=== PATIENT | male | born 1975 | race Caucasian/White ===

== ENCOUNTER → 2018-01-11 | Outpatient (CLI) | payer OTHER | LOC: CIMAGING 13:31 | PROVIDERS: ATTEND Family Medicine | DX: J34.1 Cyst and mucocele of nose and nasal sinus (principal); R93.0 Abnormal findings on diagnostic imaging of skull and head, not elsewhere classified | CPT/HCPCS: 70480-PO ==

== ENCOUNTER → 2018-02-08 | Outpatient (CLI) | payer OTHER ==
[~2018-02-08] MED LIST: GADOBUTROL 10 ML VIAL IVP ONE
== END ==
LOC: FIMAGING 15:25
PROVIDERS: ATTEND Family Medicine
DX: I63.9 Cerebral infarction, unspecified (principal); J34.1 Cyst and mucocele of nose and nasal sinus
CPT/HCPCS: A9585

== ENCOUNTER → 2018-02-25 | Outpatient (CLI) | payer OTHER | LOC: FIMAGING 16:48 | PROVIDERS: ATTEND Family Medicine | DX: I69.30 Unspecified sequelae of cerebral infarction (principal) ==

== ENCOUNTER 2018-07-10 21:26 | Emergency (ER) | payer OTHER ==
[2018-07-10] MEDS ORDERED: ASPIRIN 81 MG CHEWABLE TAB PO ONE (21:40)
[2018-07-10] MEDS ORDERED: NITROGLYCERIN 0.4 MG BTL SL PRN (21:40)
--- NOTE | 2018-07-10 21:45 | EDPHY ---
H & P Smoking Status: Never smoked Time Seen by Provider: 07/10/18 21:40 HPI/ROS: CHIEF COMPLAINT: Chest pain HISTORY OF PRESENT ILLNESS: Patient presents with chest pain. He states that about 4 hr ago, around 530 this evening, he noticed some mild chest pain in the left substernal region. He describes it as a pressure-type pain with some radiation to the left neck. Over the course of 4 hr pain got somewhat worse which prompted his visit to the emergency department. He states that the worst it was for 5/10. He states he has had no significant shortness of breath, nausea, vomiting or diaphoresis related to this pain. He has had no new dyspnea on exertion but admits that he is out of shape and gets tired easily. He denies leg swelling, recent travel, recent illnesses. He states he has been a little stuffy today and kind of achy. He also has a heart rate monitor that he wears and states that his heart rate has been over 100 most of the day today. He has hypertension but no prior history of coronary artery disease. He was seen by Dr. Golden Luna approximately 6 months ago and had a exercise stress test, carotid ultrasound, echo done which were all essentially normal. This workup was initiated as he was noted to have tachycardia and also lacunar infarcts on a CT scan and MRI that were done for a persistent sinus infection. REVIEW OF SYSTEMS: Constitutional: No fever, no chills. Eyes: No discharge. ENT: No sore throat. Cardiovascular: Per HPI Respiratory: No cough, no shortness of breath. Gastrointestinal: No abdominal pain, no vomiting. Genitourinary: No dysuria. Musculoskeletal: No back pain. Skin: No rashes. Neurological: No headache. General Appearance: Alert, no distress. Obese. Eyes: Pupils equal and round no pallor or injection. ENT, Mouth: Mucous membranes moist. Respiratory: There are no retractions, lungs are clear to auscultation. Cardiovascular: Tachycardic, no murmurs rubs or gallops. Normal femoral pulses. Palpation does not reproduce symptoms. Gastrointestinal: Abdomen is soft and nontender, no masses, bowel sounds normal. Neurological: Awake, alert, cranial nerves normal. No focal deficits. Skin: Warm and dry, no rashes. Musculoskeletal: Neck is supple nontender. Extremities are symmetrical, full range of motion, no edema. Psychiatric: Patient is oriented X 3, there is no agitation. Medical/surgical history: Hypertension, eczema, obstructive sleep apnea with CPAP at night. Social history: Nonsmoker, family history includes maternal grandfather who had heart attack in his 70s. Mother with tachycardia and hypertension. (Jyoti Zaidi) Constitutional: Initial Vital Signs Temperature (C) 36.6 C 07/10/18 21:27 Heart Rate 100 07/10/18 21:27 Respiratory Rate 20 07/10/18 21:27 Blood Pressure 173/115 H 07/10/18 21:27 O2 Sat (%) 97 07/10/18 21:27 O2 Delivery Mode Room Air O2 (L/minute) 2 Allergies/Adverse Reactions: No Known Allergies Allergy (Unverified 07/10/18 21:34) Home Medications: Medication Instructions Recorded Amlodipine Besylate 07/10/18 Hydrochlorothiazide 07/10/18 Metoprolol Succinate [Toprol Xl] 50 mg PO DAILY #14 tab.er.24h 07/11/18 Medical Decision Making - Diagnostics Imaging: I viewed and interpreted images myself - Diagnostics EKG Interpretation: EKG performed for chest pain. EKG shows sinus tachycardia with a rate of 103. Normal intervals. Left axis. Q-waves present in 3 and AVF. Nonspecific T- wave flattening inferior and lateral leads. No acute ST T-wave changes to suggest infarct or ischemia. Impression nonspecific EKG. (Jyoti Zaidi) EKG 2. EKG: Interpreted by me contemporaneously. Rhythm: Normal sinus rhythm. Heart rate 90 QTc 512 QRS: Narrow Q's in 3 and F STT segment: Nonspecific ST-T changes in 1 V4 V5 V6 T Waves: Normal Q waves narrow Q-waves in 3 and F Summary: Nonspecific ST-T changes and borderline significant Q-waves in 3 and F (Tawanda Benitez) Imaging Results: Imaging Impressions Chest X-Ray 07/10/18 21:41 Impression: Mild bronchitis. No other findings for acute cardiopulmonary abnormality. Chest x-ray shows no infiltrates, pneumothorax. Normal heart size. Generous mediastinum. 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 (Jyoti Zaidi) ED Course/Re-evaluation: 9:55 p.m. patient lightheaded, pale, lower blood pressure after nitro. Laid flat. Pain 0/10. Initial troponin 0.01 10:25 p.m. all test back, negative troponin, negative D-dimer. CBC pending will need to be sent to [facility]. Had lengthy discussion with patient regarding heart score, risk factors, evaluation in the emergency department. With shared decision making patient and choose to remain in the emergency department for several hours to perform repeat EKG and troponin. His heart score is 3 which puts him in the low risk category. He gets points for suspicious story and risk factors. He remains chest pain-free. 11:00 p.m. discussed patient's presentation, history, workup with Dr. Benitez. Plan is for repeat EKG and troponin at midnight. And discharge home if remain negative. Obviously if things change Dr. Benitez will re-evaluate and consider admission. Patient does have both primary care physician and a meteorology faculty member for follow-up. (Jyoti Zaidi) Differential Diagnosis: Differential diagnosis includes but is not limited to myocardial infarction, acute coronary syndrome, pulmonary embolism, congestive heart failure, bronchitis, viral syndrome. After initial evaluation in the emergency department no evidence of ischemia or infarct, pulmonary embolism, vascular abnormality or arrhythmia other than sinus tachycardia. Patient's blood pressure was quite high on arrival although he tells me his systolics have been in the 150s to 160s normally at home. Doubt hypertensive emergency. On my departure from the emergency department plan is for"rule out"with close follow- up with Cardiology as outpatient. (Jyoti Zaidi) Other Provider: Care assumed at change of shift. D/w off going physician. Chart reviewed. Pt interviewed and examined. Troponin and repeat EKG pending at midnight. During the initial course of his 1st hour and a half here in the department his symptoms disappeared after having a brief hypotensive response to nitroglycerin. He had been given aspirin 325. The initial troponin which was a approximately a 4 hr troponin was negative at 0.01. His heart score is 3 pending the 2nd troponin. As he left work after a stressful day whereby he was aware of his heart beating fast, as he would could see the results on his apple I watch, he noted a pressure feeling in the chest that began well as walking outside. It persisted until he arrived here and finally went away after sublingual nitroglycerin. There is no associated symptoms such as shortness of breath, pleuritic pain, or diaphoresis or nausea vomiting. Of note however is thus the very 1st time he has ever experienced chest discomfort such as this. Granted, he has noted a poor exercise tolerance in the past with being short of breath with a single flight of stairs but this has been ongoing for months and is no worse and does not make him stop the middle of that flight of stairs. RF: He has no risk factors for DVT PE. No risk factors for aortic dissection. Risk factors for coronary disease include obesity and hypertension which is poorly controlled. He does not have a family history of early-onset coronary disease nor does he smoke nor does he have diabetes or high cholesterol. Exam as per Dr. Zaidi. EKG 1. Interpreted Dr. Zaidi and I concur with a sinus tachycardia a mild nonspecific ST-T changes anterolaterally. Repeat EKG at midnight shows these changes again however heart rate is now 90. Initial troponin is 0.01 with subsequent 1 as a 6 hr level at 0.00 In view of his apparent anxiety while at work and is persistent hypertension with a diastolic of 105 and the potential for this being a coronary achy all GI will place him on Toprol XL50 mg daily for the next 2 weeks while he is getting his workup. Evidently had some trouble with hydrochlorothiazide due to the diuretic effects while initially taking that medication this past spring and perhaps a beta-comfort would be a better selection given his predilection for stress at work. I again reviewed with the patient the heart score and his result being approximately 2% of risk of Mace in the next 30 days. I discussed with him the prospect of coming in for further evaluation and diagnostic testing in the hospital versus an outpatient treatment and he opted for the latter. (Tawanda Benitez) - Data Points Laboratory Results: Laboratory Results 07/10/18 21:41 07/11/18 07/10/18 07/10/18 00:08 21:46 21:46 WBC RBC Hgb Hct MCV MCH MCHC RDW Plt Count MPV Neut % (Auto) Lymph % (Auto) [place] % (Auto) Eos % (Auto) Baso % (Auto) Nucleat RBC Rel Count Absolute Neuts (auto) Absolute Lymphs (auto) Absolute Monos (auto) Absolute Eos (auto) Absolute Basos (auto) Absolute Nucleated RBC Immature Gran % Immature Gran # RBC/WBC/PLT Morphology Platelet Estimate POC Sodium 137 mEq/L mEq/L (135-145) POC Potassium 3.3 mEq/L mEq/L (3.3-5.0) POC Chloride 96.0 mEq/L L mEq/L (97-110) POC Total CO2 26 mEq/L mEq/L (22-31) POC BUN 10 mg/dL mg/dL (7-23) POC Creatinine 0.7 mg/dL mg/dL (0.7-1.3) POC Glucose 119 mg/dL H mg/dL (70-100) POC Calcium 9.7 mg/dL mg/dL (8.5-10.4) POC Total Bilirubin 0.5 mg/dL mg/dL (0.1-1.4) POC AST 43 IU/L IU/L (17-59) POC ALT 55 IU/L IU/L (21-72) POC Alk Phosphatase 111 IU/L IU/L (38-126) POC Troponin I 0.00 ng/mL ng/mL 0.01 ng/mL ng/mL (0.00-0.08) (0.00-0.08) POC Total Protein 7.7 g/dL g/dL (6.3-8.2) POC Albumin 4.0 g/dL g/dL (3.5-5.0) 07/10/18 21:41 WBC 13.73 10^3/uL H 10^3/uL (3.80-9.50) RBC 5.66 10^6/uL 10^6/uL (4.40-6.38) Hgb 18.1 g/dL H g/dL (13.7-17.5) Hct 49.6 % % (40.0-51.0) MCV 87.6 fL fL (81.5-99.8) MCH 32.0 pg pg (27.9-34.1) MCHC 36.5 g/dL g/dL (32.4-36.7) RDW 12.8 % % (11.5-15.2) Plt Count 308 10^3/uL 10^3/uL (150-400) MPV 10.3 fL fL (8.7-11.7) Neut % (Auto) 61.0 % % (39.3-74.2) Lymph % (Auto) 23.7 % % (15.0-45.0) [place] % (Auto) 11.9 % % (4.5-13.0) Eos % (Auto) 2.0 % % (0.6-7.6) Baso % (Auto) 0.9 % % (0.3-1.7) Nucleat RBC Rel Count 0.0 % % (0.0-0.2) Absolute Neuts (auto) 8.38 10^3/uL H 10^3/uL (1.70-6.50) Absolute Lymphs (auto) 3.25 10^3/uL H 10^3/uL (1.00-3.00) Absolute Monos (auto) 1.63 10^3/uL H 10^3/uL (0.30-0.80) Absolute Eos (auto) 0.27 10^3/uL 10^3/uL (0.03-0.40) Absolute Basos (auto) 0.12 10^3/uL H 10^3/uL (0.02-0.10) Absolute Nucleated RBC 0.00 10^3/uL 10^3/uL (0-0.01) Immature Gran % 0.5 % % (0.0-1.1) Immature Gran # 0.07 10^3/uL 10^3/uL (0.00-0.10) RBC/WBC/PLT Morphology TNP Platelet Estimate TNP POC Sodium POC Potassium POC Chloride POC Total CO2 POC BUN POC Creatinine POC Glucose POC Calcium POC Total Bilirubin POC AST POC ALT POC Alk Phosphatase POC Troponin I POC Total Protein POC Albumin Medications Given: Nitroglycerin (Nitrostat) 0.4 mg SL Q5M PRN PRN Reason: Chest Pain Last Admin: 07/10/18 21:58 Dose: 0.4 tab.er Discontinued Medications Aspirin (Aspirin) 324 mg PO EDNOW ONE Stop: 07/10/18 21:41 Last Admin: 07/10/18 21:57 Dose: 324 mg Point of Care Test Results: Chemistry 07/11/18 07/10/18 07/10/18 00:08 21:46 21:46 POC Sodium 137 mEq/L mEq/L (135-145) POC Potassium 3.3 mEq/L mEq/L (3.3-5.0) POC Chloride 96.0 mEq/L L mEq/L (97-110) POC Total CO2 26 mEq/L mEq/L (22-31) POC BUN 10 mg/dL mg/dL (7-23) POC Creatinine 0.7 mg/dL mg/dL (0.7-1.3) POC Glucose 119 mg/dL H mg/dL (70-100) POC Calcium 9.7 mg/dL mg/dL (8.5-10.4) POC Total Bilirubin 0.5 mg/dL mg/dL (0.1-1.4) POC AST 43 IU/L IU/L (17-59) POC ALT 55 IU/L IU/L (21-72) POC Alk Phosphatase 111 IU/L IU/L (38-126) POC Troponin I 0.00 ng/mL ng/mL 0.01 ng/mL ng/mL (0.00-0.08) (0.00-0.08) POC Total Protein 7.7 g/dL g/dL (6.3-8.2) POC Albumin 4.0 g/dL g/dL (3.5-5.0) D-Dimer D-Dimer Collection Date 07/10/18 D-Dimer Collection Time 21:41 D-Dimer (ng/ml) LESS THAN 100 Influenza PCR Flu Nasal Swab Collection Date 07/11/18 Flu Nasal Swab Collection Time 20:30 Influenza A Result Not Detected Influenza B Result Not Detected Departure - Departure Disposition: Home, Routine, Self-Care Clinical Impression: Chest pain Qualifiers: Chest pain type: precordial pain Qualified Code(s): R07.2 - Precordial pain Condition: Good Instructions: Chest Pain (ED) Additional Instructions: Call tomorrow to be seen in the next 1-2 days for follow-up with her meteorology faculty member Going forward take OTC aspirin 81 mg daily For now, add Toprol XL 50 mg daily Consider discussing with her family physician a beta-comfort for long-term treatment of her high blood pressure Return to any ER immediately via 911 if he have recurrence of the chest pain For now, you're not to engage in any exercise until you are released by your meteorology faculty member. This includes sexual intercourse. Referrals: Patient,NotPresent [Primary Care Provider] - As per Instructions Prescriptions: Metoprolol Succinate [Toprol Xl] 50 mg PO DAILY #14 tab.er.24h
[2018-07-10 23:31] LABS: PLATELET COUNT 308 10^3/uL (150-400)
[2018-07-11] MEDS ORDERED: METOPROLOL SUCCINATE XR 25 MG TAB PO ONE (00:40)
[2018-07-11 00:52] VITALS: BP 157/100
--- NOTE | 2018-07-17 08:44 | CPEKG ---
Test Reason : OPEN Blood Pressure : / mmHG Vent. Rate : 103 BPM Atrial Rate : 103 BPM P-R Int : 171 ms QRS Dur : 091 ms QT Int : 363 ms P-R-T Axes : -08 015 -29 degrees QTc Int : 475 ms Sinus tachycardia Borderline T abnormalities, inferior leads Borderline prolonged QT interval Confirmed by Jyoti Zaidi ([id number]) on 07/17/2018 8:43:40 AM Referred By: Confirmed By:Jyoti Zaidi
--- NOTE | 2018-07-18 08:55 | CPEKG ---
Test Reason : OPEN Blood Pressure : / mmHG Vent. Rate : 090 BPM Atrial Rate : 090 BPM P-R Int : 164 ms QRS Dur : 093 ms QT Int : 447 ms P-R-T Axes : -18 -11 003 degrees QTc Int : 547 ms Sinus rhythm Left ventricular hypertrophy Inferior infarct, old Prolonged QT interval Confirmed by Paolo Wick ([id number] on 07/18/2018 8:54:52 AM Referred By: Confirmed By:Paolo Wick
== END 2018-07-11 00:51 | disposition home or self-care (01) ==
LOC: CED 21:31
DX: R07.2 Precordial pain (principal); I10 Essential (primary) hypertension
CPT/HCPCS: 71046-PO; 80053-PO; 84484-PO